=== PATIENT | female | born 1955 | race African-American/Black ===

== ENCOUNTER 2019-11-20 17:25 | Inpatient (IN) | payer MEDICARE, OTHER ==
[~2019-11-20] VITALS: Ht 185.4 cm; Wt 87.5 kg
[2019-11-20] MEDS ORDERED: ASPIRIN 81MG TABLET PO ONE (19:00)
[2019-11-20] MEDS ORDERED: NITROGLYCERIN 0.4MG TABLET SL SL PRN (19:00)
[2019-11-20 19:59] LABS: CHLORIDE 113 mEq/L (98-107)
[2019-11-20] MEDS ORDERED: LEVOFLOXACIN 750MG PREMIX 150 ML IV ONE (20:00)
[2019-11-20 20:03] LABS: BASOPHILS % 1.1 % (0.0-2.0); EOSINOPHILS % 1.9 % (0.0-5.0); HEMOGLOBIN. 15.9 g/dL (12.0-16.0); LYMPHOCYTES % 29.9 % (20.0-50.0); MEAN CORPUSCULAR HEMOGLOBIN 32.4 pg (28.0-32.0); MEAN CORPUSCULAR VOLUME 95.7 fL (81.0-99.0); MEAN PLATELET VOLUME 9.7 fl (7.4-10.4); MONOCYTES % 7.1 % (2.0-8.0); PLATELET 158 x1000/uL (130-400); RED BLOOD CELL COUNT 4.91 mill/uL (4.2-5.4); RED CELL DISTRIBUTION WIDTH 13.6 % (11.6-14.6)
[2019-11-20 20:05] LABS: D-DIMER 2.29 mg/L FEU (<0.50); INR 1.1; PROTHROMBIN TIME 11.8 sec (9.6-11.0)
[2019-11-20] MEDS ORDERED: ENOXAPARIN 150MG/ML SYR SUBCUT ONE (20:45)
[2019-11-20] MEDS ORDERED: HYDROCODONE/ACETAMINOPHEN 5/325MG TABLET PO PRN (21:15)
[2019-11-20] MEDS ORDERED: CLONIDINE 0.1MG TABLET PO PRN (21:15)
[2019-11-20] MEDS ORDERED: MAGNESIUM/ALUMINUM HYDROXIDE/SIMETHICONE 30ML UDC PO PRN (21:15)
[2019-11-20] MEDS ORDERED: ONDANSETRON HCL 4MG/2ML INJ IV PRN (21:15)
[2019-11-20] MEDS ORDERED: DOCUSATE SODIUM 100MG CAPSULE PO PRN (21:15)
[2019-11-20] MEDS ORDERED: AZITHROMYCIN 500 MG in DEXT 5% WATER 250 ML IV SCH (22:00)
[2019-11-20] MEDS ORDERED: CEFTRIAXONE 1 G PREMIX 50 ML IV SCH (22:00)
[2019-11-20 22:26] LABS: CLARITY URINE CLEAR (CLEAR); COLOR URINE YELLOW (YELLOW); KETONES URINE NEGATIVE (NEGATIVE); LEUKOCYTE ESTERASE URINE NEGATIVE (NEGATIVE); NITRITE URINE NEGATIVE (NEGATIVE); OCCULT BLOOD URINE NEGATIVE (NEGATIVE); PROTEIN URINE NEGATIVE (NEGATIVE); SPECIFIC GRAVITY URINE 1.017 (1.005-1.030); UROBILINOGEN URINE 0.2 E.U./dL (0.2-1.0)
[2019-11-20 23:57] LABS: CREATINE KINASE 190 IU/L (26-192)
[2019-11-21 01:55] LABS: BG BASE EXCESS 0.1 mmol/L (-2.0-2.0); BG CARBOXYHEMOGLOBIN 0.5 % (0.5-1.5); BG DEOXYHEMOGLOBIN 8.8 % (0.0-5.0); BG FRACTION INSPIRED OXYGEN 26; BG HCO3 ACT 24.3 mmol/L (22.0-26.0); BG METHEMOGLOBIN 0.4 % (0.0-1.5); BG OXYGEN SATURATION 91.1 % (92.0-98.5); BG OXYHEMOGLOBIN 90.3 % (94.0-97.0); BG PH 7.423 (7.350-7.450); BG SAMPLE SITE RIGHT RADIAL; BG TOTAL HEMOGLOBIN 15.1 g/dL (12.0-18.0); BG VENT MODE NASAL CANNULA
[2019-11-21] MEDS: ACETAMINOPHEN 325MG TABLET PO PRN (01:56)
[2019-11-21] MEDS ORDERED: IOHEXOL-350 100 ML BOTTLE ONE (03:33)
[2019-11-21 04:48] LABS: CHLORIDE 110 mEq/L (98-107)
[2019-11-21 04:57] LABS: HDL CHOLESTEROL 33 mg/dL (40-59); LDL CHOLESTEROL 125 mg/dL (5-100)
[2019-11-21 04:58] LABS: CREATINE KINASE 168 IU/L (26-192)
[2019-11-21 05:00] LABS: BASOPHILS % 1.2 % (0.0-2.0); EOSINOPHILS % 2.3 % (0.0-5.0); HEMATOCRIT. 42.6 % (36.0-48.0); HEMOGLOBIN. 14.5 g/dL (12.0-16.0); LYMPHOCYTES % 36.2 % (20.0-50.0); MEAN CORPUSCULAR HEMOGLOBIN 32.8 pg (28.0-32.0); MEAN CORPUSCULAR VOLUME 96.7 fL (81.0-99.0); MEAN PLATELET VOLUME 9.6 fl (7.4-10.4); MONOCYTES % 8.6 % (2.0-8.0); NEUTROPHILS % 51.7 % (40.0-76.0); PLATELET 148 x1000/uL (130-400); RED BLOOD CELL COUNT 4.41 mill/uL (4.2-5.4); RED CELL DISTRIBUTION WIDTH 13.1 % (11.6-14.6)
[2019-11-21] MEDS ORDERED: ENOXAPARIN 40MG/0.4ML SYR SUBCUT SCH (09:00)
[2019-11-21] MEDS ORDERED: ENOXAPARIN 120MG/0.8ML SYR SUBCUT NR (11:15)
[2019-11-21] MEDS: CEFTRIAXONE 1 G PREMIX 50 ML IV SCH (13:00)
[2019-11-21] MEDS: AZITHROMYCIN 500 MG in DEXT 5% WATER 250 ML IV SCH (14:00)
[2019-11-21] MEDS ORDERED: FUROSEMIDE 100MG/10ML VIAL IVP SCH (15:00)
[2019-11-21] MEDS: PREDNISONE 20MG TABLET PO SCH (15:15)
[2019-11-21 18:59] VITALS: BP 151/96
[2019-11-21 20:00] VITALS: BP 134/83
[2019-11-21] MEDS ORDERED: PRED-276 PO (20:39)
[2019-11-21] MEDS: ENOXAPARIN 150MG/ML SYR SUBCUT SCH (21:21)
[2019-11-21] MEDS: ALBUTEROL 6.7GM HFA INHALER ORI SCH (21:47)
[2019-11-22] VITALS: BP 133/86
[2019-11-22] MEDS: ALBUTEROL 6.7GM HFA INHALER ORI SCH ×4 (03:00→20:40)
[2019-11-22 04:00] VITALS: BP 129/80
[2019-11-22 08:00] VITALS: BP 132/87
[2019-11-22 08:17] LABS: EOSINOPHILS % 0.1 % (0.0-5.0); HEMATOCRIT. 44.4 % (36.0-48.0); LYMPHOCYTES % 21.5 % (20.0-50.0); MEAN CORPUSCULAR HEMOGLOBIN 32.8 pg (28.0-32.0); MEAN CORPUSCULAR VOLUME 96.8 fL (81.0-99.0); MEAN PLATELET VOLUME 9.2 fl (7.4-10.4); MONOCYTES % 5.9 % (2.0-8.0); NEUTROPHILS % 71.5 % (40.0-76.0); PLATELET 151 x1000/uL (130-400); RED BLOOD CELL COUNT 4.58 mill/uL (4.2-5.4); RED CELL DISTRIBUTION WIDTH 13.4 % (11.6-14.6)
[2019-11-22] MEDS: PREDNISONE 20MG TABLET PO SCH (08:46)
[2019-11-22] MEDS: ENOXAPARIN 150MG/ML SYR SUBCUT SCH (08:46)
[2019-11-22 09:21] LABS: CHLORIDE 108 mEq/L (98-107)
[2019-11-22 09:31] LABS: CREATINE KINASE MB FRACTION < 1.0 ng/mL (0.5-3.6)
[2019-11-22 09:33] LABS: CREATINE KINASE 108 IU/L (26-192)
[2019-11-22 09:34] LABS: LDL CHOLESTEROL 147 mg/dL (5-100)
[2019-11-22 09:35] LABS: HDL CHOLESTEROL 38 mg/dL (40-59)
[2019-11-22] MEDS: ACETAMINOPHEN 325MG TABLET PO PRN (10:28)
[2019-11-22] MEDS ORDERED: FUROSEMIDE 40MG/4ML VIAL IVP NR (11:15)
[2019-11-22 12:00] VITALS: BP 115/83
[2019-11-22] MEDS: AZITHROMYCIN 500 MG in DEXT 5% WATER 250 ML IV SCH (15:00)
[2019-11-22] MEDS: CEFTRIAXONE 1 G PREMIX 50 ML IV SCH (15:00)
[2019-11-22 16:00] VITALS: BP 126/86
[2019-11-22 20:00] VITALS: BP 134/82
[2019-11-22] MEDS: ENOXAPARIN 100MG/ML SYR SUBCUT SCH (21:43)
[2019-11-23] VITALS: BP 129/84
[2019-11-23] MEDS: ALBUTEROL 6.7GM HFA INHALER ORI SCH ×5 (02:00→21:20)
[2019-11-23 04:00] VITALS: BP 126/85
[2019-11-23 08:30] VITALS: BP 102/78
[2019-11-23] MEDS: PREDNISONE 20MG TABLET PO SCH (08:40)
[2019-11-23] MEDS: ENOXAPARIN 100MG/ML SYR SUBCUT SCH ×2 (08:41→20:40)
[2019-11-23 10:14] LABS: BASOPHILS % 0.8 % (0.0-2.0); HEMATOCRIT. 43.7 % (36.0-48.0); LYMPHOCYTES % 29.6 % (20.0-50.0); MEAN CORPUSCULAR VOLUME 96.5 fL (81.0-99.0); MEAN PLATELET VOLUME 9.5 fl (7.4-10.4); MONOCYTES % 7.1 % (2.0-8.0); NEUTROPHILS % 61.5 % (40.0-76.0); PLATELET 163 x1000/uL (130-400); RED BLOOD CELL COUNT 4.53 mill/uL (4.2-5.4); RED CELL DISTRIBUTION WIDTH 13.1 % (11.6-14.6)
[2019-11-23 10:25] LABS: CHLORIDE 108 mEq/L (98-107)
[2019-11-23] MEDS: CEFTRIAXONE 1 G PREMIX 50 ML IV SCH (11:29)
[2019-11-23 12:03] VITALS: BP 112/76
[2019-11-23] MEDS: AZITHROMYCIN 500 MG in DEXT 5% WATER 250 ML IV SCH (14:04)
[2019-11-23 16:19] VITALS: BP 108/80
[2019-11-23] MEDS ORDERED: POTASSIUM CHLORIDE 20MEQ TABLET SR PO NR (17:00)
[2019-11-23 20:00] VITALS: BP 104/64
[2019-11-23] MEDS ORDERED: ATORVASTATIN CALCIUM 20MG TABLET PO SCH (21:00)
[2019-11-24] VITALS: BP 124/84
[2019-11-24] MEDS: ALBUTEROL 6.7GM HFA INHALER ORI SCH ×4 (02:05→15:17)
[2019-11-24 04:00] VITALS: BP 121/81
[2019-11-24 06:36] LABS: BASOPHILS % 0.9 % (0.0-2.0); EOSINOPHILS % 0.8 % (0.0-5.0); MEAN CORPUSCULAR HEMOGLOBIN 32.9 pg (28.0-32.0); MEAN CORPUSCULAR VOLUME 96.3 fL (81.0-99.0); MEAN PLATELET VOLUME 9.4 fl (7.4-10.4); MONOCYTES % 7.5 % (2.0-8.0); NEUTROPHILS % 57.8 % (40.0-76.0); PLATELET 136 x1000/uL (130-400); RED BLOOD CELL COUNT 4.26 mill/uL (4.2-5.4)
[2019-11-24 07:07] LABS: CHLORIDE 109 mEq/L (98-107)
[2019-11-24 08:00] VITALS: BP 143/89
[2019-11-24] MEDS: PREDNISONE 20MG TABLET PO SCH (09:06)
[2019-11-24] MEDS: ENOXAPARIN 100MG/ML SYR SUBCUT SCH (09:07)
[2019-11-24 12:00] VITALS: BP 131/87
[2019-11-24] MEDS: CEFTRIAXONE 1 G PREMIX 50 ML IV SCH (14:01)
[2019-11-24] MEDS: AZITHROMYCIN 500 MG in DEXT 5% WATER 250 ML IV SCH (14:05)
[2019-11-24 16:00] VITALS: BP 129/85
[2019-11-24 20:00] VITALS: BP 111/77
[2019-11-24] MEDS: APIXABAN 5 MG TABLET PO SCH (20:08)
[2019-11-25] VITALS: BP 127/88
[2019-11-25 04:00] VITALS: BP 131/78
[2019-11-25 08:00] VITALS: BP 115/69
[2019-11-25] MEDS: PREDNISONE 20MG TABLET PO SCH (08:43)
[2019-11-25] MEDS: APIXABAN 5 MG TABLET PO SCH (08:43)
[2019-11-25] MEDS ORDERED: BENZONATATE 100MG CAPSULE PO PRN (11:00)
[2019-11-25 12:00] VITALS: BP 126/85
[2019-11-25 13:44] VITALS: BP 126/83
== END 2019-11-25 16:55 | disposition home or self-care (01) | DRG 193 ==
LOC: ER 17:25 → ENRESERV 11-21 17:09 → 7WST 11-21 18:49 → 5WST 11-25 04:17
PROVIDERS: ADMIT Hospitalist; ATTEND Hospitalist
DX: J18.9 Pneumonia, unspecified organism (principal); J96.21 Acute and chronic respiratory failure with hypoxia; J44.1 Chronic obstructive pulmonary disease with (acute) exacerbation; E44.1 Mild protein-calorie malnutrition; D68.59 Other primary thrombophilia; R04.2 Hemoptysis; I27.82 Chronic pulmonary embolism; J44.0 Chronic obstructive pulmonary disease with (acute) lower respiratory infection; N63.20 Unspecified lump in the left breast, unspecified quadrant; K76.89 Other specified diseases of liver; I27.21 Secondary pulmonary arterial hypertension; Z20.828 Contact with and (suspected) exposure to other viral communicable diseases; E78.5 Hyperlipidemia, unspecified; Z99.81 Dependence on supplemental oxygen; Z68.25 Body mass index [BMI] 25.0-25.9, adult; R74.0 Nonspecific elevation of levels of transaminase and lactic acid dehydrogenase [LDH]
CPT/HCPCS: 36415; 36600; 71045; 71275; 80048; 80053; 80061; 81003; 82375; 82550; 82553; 82805; 83605; 83735; 83880; 84443; 84484; 85025; 85379; 93005; 93306; 93970; 94640; 96365; 99285; J0456; J0696; J1650; J1940; J1956; J7060; J7512; Q9967; U0003-CS

== ENCOUNTER 2020-04-15 20:10 | Inpatient (IN) | payer MEDICARE, BC, OTHER ==
[~2020-04-15] VITALS: Ht 170.2 cm; Wt 83.9 kg
[2020-04-15 20:00] VITALS: BP 128/76
[~2020-04-15 20:10] MED LIST: PRED-276 PO; XAR15 MT
[2020-04-15 20:15] VITALS: BP 126/79
[2020-04-15 20:20] VITALS: BP 126/79
[2020-04-15] MEDS: SILDENAFIL CITRATE 20MG TABLET PO SCH (22:19)
[2020-04-15] MEDS: HYDROCODONE/ACETAMINOPHEN 5/325MG TABLET PO PRN (23:28)
[2020-04-16] MEDS: IPRATROPIUM/ALBUTEROL 0.5-3(2.5)MG/3ML NEB HHN SCH ×6 (00:39→21:15)
[2020-04-16 06:14] LABS: CHLORIDE 107 mEq/L (98-107)
[2020-04-16] MEDS: SILDENAFIL CITRATE 20MG TABLET PO SCH ×3 (06:19→21:50)
[2020-04-16 06:29] LABS: BASOPHILS % 0.6 % (0.0-2.0); EOSINOPHILS % 1.4 % (0.0-5.0); HEMATOCRIT. 41.5 % (36.0-48.0); HEMOGLOBIN. 13.7 g/dL (12.0-16.0); LYMPHOCYTES % 20.2 % (20.0-50.0); MEAN CORPUSCULAR HEMOGLOBIN 32.6 pg (28.0-32.0); MEAN CORPUSCULAR VOLUME 98.6 fL (81.0-99.0); MEAN PLATELET VOLUME 9.5 fl (7.4-10.4); MONOCYTES % 9.4 % (2.0-8.0); NEUTROPHILS % 68.4 % (40.0-76.0); PLATELET 144 x1000/uL (130-400); RED CELL DISTRIBUTION WIDTH 13.8 % (11.6-14.6)
[2020-04-16 07:53] VITALS: BP 120/73
[2020-04-16] MEDS: LIDOCAINE 5% PATCH TOP SCH ×2 (08:30→11:45)
[2020-04-16] MEDS: PREDNISONE 20MG TABLET PO SCH (08:31)
[2020-04-16] MEDS: HYDROCODONE/ACETAMINOPHEN 5/325MG TABLET PO PRN ×2 (08:32→16:40)
[2020-04-16] MEDS: AMLODIPINE 2.5MG TABLET PO SCH ×2 (08:32→21:00)
[2020-04-16] MEDS: POTASSIUM CHLORIDE 10MEQ TABLET SR PO SCH (08:38)
[2020-04-16] MEDS: FUROSEMIDE 20MG/2ML VIAL IVP SCH (09:00)
[2020-04-16] MEDS ORDERED: CEFTRIAXONE 1,000 MG in DEXTROSE 5% WATER 50 ML IV SCH (09:00)
[2020-04-16] MEDS: LOSARTAN POTASSIUM 25 MG TABLET PO SCH (09:00)
[2020-04-16] MEDS ORDERED: AZITHROMYCIN 250 MG TABLET PO SCH (09:00)
[2020-04-16 10:34] VITALS: BP 109/78
[2020-04-16] MEDS ORDERED: P20 MT (13:44)
[2020-04-16] MEDS ORDERED: FLUT1BLS INH (13:44)
[2020-04-16] MEDS ORDERED: POTA-79 PO (13:44)
[2020-04-16] MEDS ORDERED: FURO-151 PO (13:44)
[2020-04-16] MEDS ORDERED: SUCR1TAB MT (13:44)
[2020-04-16] MEDS ORDERED: ALBU4TAB6 MT (13:44)
[2020-04-16] MEDS: FAMOTIDINE 20MG/2ML VIAL IV SCH (16:19)
[2020-04-16] MEDS: RIVAROXABAN 15 MG TABLET PO SCH (16:19)
[2020-04-16] MEDS: GUAIFENESIN-DM 200MG-20MG/10ML UDC PO PRN (16:23)
[2020-04-16 20:00] VITALS: BP 105/71
[2020-04-16] MEDS: GUAIFENESIN 600MG ER TABLET PO SCH (21:49)
[2020-04-17] MEDS: IPRATROPIUM/ALBUTEROL 0.5-3(2.5)MG/3ML NEB HHN SCH ×6 (00:25→21:23)
[2020-04-17 06:48] LABS: BASOPHILS % 0.7 % (0.0-2.0); EOSINOPHILS % 0.4 % (0.0-5.0); HEMATOCRIT. 43.6 % (36.0-48.0); HEMOGLOBIN. 14.7 g/dL (12.0-16.0); LYMPHOCYTES % 14.5 % (20.0-50.0); MEAN CORPUSCULAR HEMOGLOBIN 33.1 pg (28.0-32.0); MEAN CORPUSCULAR VOLUME 98.4 fL (81.0-99.0); MEAN PLATELET VOLUME 9.5 fl (7.4-10.4); MONOCYTES % 7.3 % (2.0-8.0); NEUTROPHILS % 77.1 % (40.0-76.0); PLATELET 165 x1000/uL (130-400); RED BLOOD CELL COUNT 4.43 mill/uL (4.2-5.4); RED CELL DISTRIBUTION WIDTH 13.9 % (11.6-14.6)
[2020-04-17] MEDS: SILDENAFIL CITRATE 20MG TABLET PO SCH ×3 (06:49→21:32)
[2020-04-17 07:13] LABS: CHLORIDE 106 mEq/L (98-107)
[2020-04-17 07:18] LABS: PHOSPHORUS 3.6 mg/dL (2.5-4.9)
[2020-04-17 07:19] LABS: LDL CHOLESTEROL 130 mg/dL (5-100)
[2020-04-17 07:21] LABS: HDL CHOLESTEROL 61 mg/dL (40-59)
[2020-04-17 07:35] LABS: FOLIC ACID (FOLATE) SERUM 13.2 ng/mL (>5.38)
[2020-04-17 08:00] VITALS: BP 114/73
[2020-04-17] MEDS: FUROSEMIDE 20MG/2ML VIAL IVP SCH (09:00)
[2020-04-17] MEDS: AMLODIPINE 2.5MG TABLET PO SCH ×2 (09:00→20:09)
[2020-04-17] MEDS: PREDNISONE 20MG TABLET PO SCH (09:07)
[2020-04-17] MEDS: FAMOTIDINE 20MG/2ML VIAL IV SCH (09:07)
[2020-04-17] MEDS: HYDROCODONE/ACETAMINOPHEN 5/325MG TABLET PO PRN ×4 (09:08→21:31)
[2020-04-17] MEDS: POTASSIUM CHLORIDE 10MEQ TABLET SR PO SCH (09:08)
[2020-04-17] MEDS: LIDOCAINE 5% PATCH TOP SCH ×2 (09:08→09:09)
[2020-04-17] MEDS: LOSARTAN POTASSIUM 25 MG TABLET PO SCH (09:08)
[2020-04-17] MEDS: GUAIFENESIN 600MG ER TABLET PO SCH ×2 (09:08→20:09)
[2020-04-17] MEDS: CYANOCOBALAMIN 1000MCG/ML VIAL IM SCH (12:58)
[2020-04-17] MEDS: RIVAROXABAN 15 MG TABLET PO SCH (17:00)
[2020-04-17 20:00] VITALS: BP 132/52
[2020-04-17] MEDS: THROAT LOZENGES-BENZOCAINE/MENTH/CETYLPYRD CL LOZENGES MM PRN (20:11)
[2020-04-18] MEDS: IPRATROPIUM/ALBUTEROL 0.5-3(2.5)MG/3ML NEB HHN SCH ×6 (00:59→22:05)
[2020-04-18] MEDS: SILDENAFIL CITRATE 20MG TABLET PO SCH ×2 (05:03→17:45)
[2020-04-18] MEDS: HYDROCODONE/ACETAMINOPHEN 5/325MG TABLET PO PRN ×2 (05:04→13:47)
[2020-04-18 07:18] VITALS: BP 105/69
[2020-04-18] MEDS: GUAIFENESIN 600MG ER TABLET PO SCH (08:14)
[2020-04-18] MEDS: AMLODIPINE 2.5MG TABLET PO SCH ×2 (08:15→22:20)
[2020-04-18] MEDS: LOSARTAN POTASSIUM 25 MG TABLET PO SCH (08:16)
[2020-04-18] MEDS: POTASSIUM CHLORIDE 10MEQ TABLET SR PO SCH (08:16)
[2020-04-18] MEDS: PREDNISONE 20MG TABLET PO SCH (08:16)
[2020-04-18] MEDS: LIDOCAINE 5% PATCH TOP SCH ×2 (08:18)
[2020-04-18] MEDS: FAMOTIDINE 20MG/2ML VIAL IV SCH (08:19)
[2020-04-18] MEDS: FUROSEMIDE 20MG/2ML VIAL IVP SCH (08:19)
[2020-04-18] MEDS: CYANOCOBALAMIN 1000MCG/ML VIAL IM SCH (08:20)
[2020-04-18] MEDS: THROAT LOZENGES-BENZOCAINE/MENTH/CETYLPYRD CL LOZENGES MM PRN ×2 (10:05→15:48)
[2020-04-18] MEDS: RIVAROXABAN 15 MG TABLET PO SCH (17:27)
[2020-04-18] MEDS: GUAIFENESIN/CODEINE 200-20MG/10ML UDC PO PRN (17:29)
[2020-04-18 20:00] VITALS: BP 133/85
[2020-04-19] MEDS: IPRATROPIUM/ALBUTEROL 0.5-3(2.5)MG/3ML NEB HHN SCH ×6 (01:22→21:07)
[2020-04-19] MEDS: SILDENAFIL CITRATE 20MG TABLET PO SCH ×4 (01:31→21:37)
[2020-04-19] MEDS: GUAIFENESIN-DM 200MG-20MG/10ML UDC PO PRN ×2 (03:53→09:56)
[2020-04-19] MEDS: THROAT LOZENGES-BENZOCAINE/MENTH/CETYLPYRD CL LOZENGES MM PRN ×2 (06:03→21:41)
[2020-04-19] MEDS: HYDROCODONE/ACETAMINOPHEN 5/325MG TABLET PO PRN ×2 (06:04→15:39)
[2020-04-19 06:54] LABS: BASOPHILS % 0.4 % (0.0-2.0); EOSINOPHILS % 0.3 % (0.0-5.0); HEMATOCRIT. 39.1 % (36.0-48.0); LYMPHOCYTES % 15.6 % (20.0-50.0); MEAN CORPUSCULAR HEMOGLOBIN 32.9 pg (28.0-32.0); MEAN CORPUSCULAR VOLUME 98.6 fL (81.0-99.0); MEAN PLATELET VOLUME 9.6 fl (7.4-10.4); MONOCYTES % 12.3 % (2.0-8.0); NEUTROPHILS % 71.4 % (40.0-76.0); PLATELET 131 x1000/uL (130-400); RED BLOOD CELL COUNT 3.96 mill/uL (4.2-5.4); RED CELL DISTRIBUTION WIDTH 13.7 % (11.6-14.6)
[2020-04-19 07:06] LABS: CHLORIDE 107 mEq/L (98-107)
[2020-04-19 08:00] VITALS: BP 129/74
[2020-04-19] MEDS: CYANOCOBALAMIN 1000MCG/ML VIAL IM SCH (08:39)
[2020-04-19] MEDS: FUROSEMIDE 20MG/2ML VIAL IVP SCH (08:39)
[2020-04-19] MEDS: FAMOTIDINE 20MG/2ML VIAL IV SCH (08:39)
[2020-04-19] MEDS: PREDNISONE 20MG TABLET PO SCH (08:40)
[2020-04-19] MEDS: AMLODIPINE 2.5MG TABLET PO SCH ×2 (08:40→21:37)
[2020-04-19] MEDS: POTASSIUM CHLORIDE 10MEQ TABLET SR PO SCH (08:40)
[2020-04-19] MEDS: LOSARTAN POTASSIUM 25 MG TABLET PO SCH (08:41)
[2020-04-19] MEDS: LIDOCAINE 5% PATCH TOP SCH ×2 (08:41→08:42)
[2020-04-19] MEDS: GUAIFENESIN/CODEINE 200-20MG/10ML UDC PO PRN (15:38)
[2020-04-19] MEDS: RIVAROXABAN 15 MG TABLET PO SCH (16:47)
[2020-04-19 20:00] VITALS: BP 114/78
[2020-04-20] MEDS: IPRATROPIUM/ALBUTEROL 0.5-3(2.5)MG/3ML NEB HHN SCH ×6 (01:00→22:16)
[2020-04-20] MEDS: THROAT LOZENGES-BENZOCAINE/MENTH/CETYLPYRD CL LOZENGES MM PRN ×2 (04:25→11:14)
[2020-04-20] MEDS: SILDENAFIL CITRATE 20MG TABLET PO SCH ×3 (05:09→22:52)
[2020-04-20] MEDS: HYDROCODONE/ACETAMINOPHEN 5/325MG TABLET PO PRN ×2 (05:10→15:20)
[2020-04-20] MEDS: POTASSIUM CHLORIDE 10MEQ TABLET SR PO SCH (08:35)
[2020-04-20] MEDS: PREDNISONE 20MG TABLET PO SCH (08:35)
[2020-04-20] MEDS: FAMOTIDINE 20MG/2ML VIAL IV SCH (08:35)
[2020-04-20] MEDS: GUAIFENESIN-DM 200MG-20MG/10ML UDC PO PRN ×2 (08:35→15:16)
[2020-04-20] MEDS: FUROSEMIDE 20MG/2ML VIAL IVP SCH (08:35)
[2020-04-20] MEDS: LOSARTAN POTASSIUM 25 MG TABLET PO SCH (08:35)
[2020-04-20] MEDS: LIDOCAINE 5% PATCH TOP SCH ×2 (08:36)
[2020-04-20] MEDS: AMLODIPINE 2.5MG TABLET PO SCH ×2 (09:00→21:00)
[2020-04-20 10:34] VITALS: BP 121/88
[2020-04-20] MEDS: RIVAROXABAN 15 MG TABLET PO SCH (17:18)
[2020-04-20 20:00] VITALS: BP 102/76
[2020-04-20] MEDS: GUAIFENESIN/CODEINE 200-20MG/10ML UDC PO PRN (22:52)
[2020-04-21] MEDS: IPRATROPIUM/ALBUTEROL 0.5-3(2.5)MG/3ML NEB HHN SCH ×6 (02:14→22:06)
[2020-04-21] MEDS ORDERED: HYDROCODONE/ACETAMINOPHEN 5/325MG TABLET PO PRN (05:15)
[2020-04-21] MEDS: SILDENAFIL CITRATE 20MG TABLET PO SCH ×3 (05:32→21:18)
[2020-04-21 08:00] VITALS: BP 126/96
[2020-04-21] MEDS: FAMOTIDINE 20MG/2ML VIAL IV SCH (08:35)
[2020-04-21] MEDS: GUAIFENESIN/CODEINE 200-20MG/10ML UDC PO PRN ×2 (08:35→21:19)
[2020-04-21] MEDS: PREDNISONE 20MG TABLET PO SCH (08:35)
[2020-04-21] MEDS: FUROSEMIDE 20MG/2ML VIAL IVP SCH (08:35)
[2020-04-21] MEDS: POTASSIUM CHLORIDE 10MEQ TABLET SR PO SCH (08:35)
[2020-04-21] MEDS: LOSARTAN POTASSIUM 25 MG TABLET PO SCH (08:36)
[2020-04-21] MEDS: AMLODIPINE 2.5MG TABLET PO SCH ×2 (08:36→21:00)
[2020-04-21] MEDS: LIDOCAINE 5% PATCH TOP SCH ×2 (08:37)
[2020-04-21] MEDS ORDERED: CYANOCOBALAMIN 1000MCG/ML VIAL IM SCH ×2 (09:00)
[2020-04-21] MEDS: GUAIFENESIN-DM 200MG-20MG/10ML UDC PO PRN (10:21)
[2020-04-21] MEDS: RIVAROXABAN 15 MG TABLET PO SCH (16:08)
[2020-04-21 20:00] VITALS: BP 94/66
[2020-04-22] MEDS: IPRATROPIUM/ALBUTEROL 0.5-3(2.5)MG/3ML NEB HHN SCH ×6 (01:37→21:19)
[2020-04-22] MEDS: SILDENAFIL CITRATE 20MG TABLET PO SCH ×3 (06:15→21:42)
[2020-04-22] MEDS: HYDROCODONE/ACETAMINOPHEN 5/325MG TABLET PO PRN ×2 (06:16→21:48)
[2020-04-22 08:15] VITALS: BP 119/83
[2020-04-22] MEDS: FUROSEMIDE 20MG/2ML VIAL IVP SCH (08:41)
[2020-04-22] MEDS: LOSARTAN POTASSIUM 25 MG TABLET PO SCH (08:41)
[2020-04-22] MEDS: PREDNISONE 20MG TABLET PO SCH (08:41)
[2020-04-22] MEDS: FAMOTIDINE 20MG/2ML VIAL IV SCH (08:41)
[2020-04-22] MEDS: AMLODIPINE 2.5MG TABLET PO SCH ×2 (08:41→21:42)
[2020-04-22] MEDS: POTASSIUM CHLORIDE 10MEQ TABLET SR PO SCH (08:41)
[2020-04-22] MEDS: LIDOCAINE 5% PATCH TOP SCH ×2 (08:43)
[2020-04-22] MEDS ORDERED: ACETAMINOPHEN 325MG TABLET PO PRN (10:45)
[2020-04-22] MEDS ORDERED: ERGOCALCIFEROL 50000UNITS CAPSULE PO SCH (11:00)
[2020-04-22 13:20] VITALS: BP 129/64
[2020-04-22] MEDS: GUAIFENESIN/CODEINE 200-20MG/10ML UDC PO PRN (15:30)
[2020-04-22 20:00] VITALS: BP 118/73
[2020-04-22] MEDS: GUAIFENESIN-DM 200MG-20MG/10ML UDC PO PRN (22:00)
[2020-04-23] MEDS: IPRATROPIUM/ALBUTEROL 0.5-3(2.5)MG/3ML NEB HHN SCH ×6 (00:48→20:08)
[2020-04-23] MEDS: SILDENAFIL CITRATE 20MG TABLET PO SCH ×3 (06:00→21:54)
[2020-04-23] MEDS: GUAIFENESIN-DM 200MG-20MG/10ML UDC PO PRN (06:31)
[2020-04-23 07:05] LABS: HEMATOCRIT. 43.9 % (36.0-48.0); HEMOGLOBIN. 14.5 g/dL (12.0-16.0); MEAN CORPUSCULAR HEMOGLOBIN 32.8 pg (28.0-32.0); MEAN CORPUSCULAR VOLUME 99.4 fL (81.0-99.0); MEAN PLATELET VOLUME 9.3 fl (7.4-10.4); PLATELET 103 x1000/uL (130-400); RED BLOOD CELL COUNT 4.41 mill/uL (4.2-5.4); RED CELL DISTRIBUTION WIDTH 13.5 % (11.6-14.6)
[2020-04-23 08:13] VITALS: BP 113/80
[2020-04-23] MEDS ORDERED: GUAIFENESIN 200MG/10ML SUGAR FREE UDC PO NR (09:45)
[2020-04-23] MEDS: FUROSEMIDE 20MG/2ML VIAL IVP SCH (09:54)
[2020-04-23] MEDS: FAMOTIDINE 20MG/2ML VIAL IV SCH (09:54)
[2020-04-23] MEDS: LOSARTAN POTASSIUM 25 MG TABLET PO SCH (09:55)
[2020-04-23] MEDS: AMLODIPINE 2.5MG TABLET PO SCH ×2 (09:55→21:00)
[2020-04-23] MEDS: LIDOCAINE 5% PATCH TOP SCH ×2 (09:55→09:56)
[2020-04-23] MEDS: PREDNISONE 20MG TABLET PO SCH (09:55)
[2020-04-23] MEDS: POTASSIUM CHLORIDE 10MEQ TABLET SR PO SCH (09:55)
[2020-04-23 14:23] LABS: PLATELET ESTIMATE DECREASED
[2020-04-23] MEDS ORDERED: LORAZEPAM 1MG TABLET PO NR (14:30)
[2020-04-23] MEDS: GUAIFENESIN 200MG/10ML SUGAR FREE UDC PO PRN (14:38)
[2020-04-23] MEDS ORDERED: RIVAROXABAN 15 MG TABLET PO SCH (17:00)
[2020-04-23] MEDS: RIVAROXABAN 15 MG TABLET PO SCH (17:07)
[2020-04-23] MEDS: HYDROCODONE/ACETAMINOPHEN 5/325MG TABLET PO PRN (20:27)
[2020-04-23 23:00] VITALS: BP 100/60
[2020-04-24] MEDS: IPRATROPIUM/ALBUTEROL 0.5-3(2.5)MG/3ML NEB HHN SCH ×5 (03:45→21:09)
[2020-04-24] MEDS: SILDENAFIL CITRATE 20MG TABLET PO SCH ×3 (05:41→21:34)
[2020-04-24 08:03] VITALS: BP 115/76
[2020-04-24] MEDS: GUAIFENESIN-DM 200MG-20MG/10ML UDC PO PRN (08:45)
[2020-04-24] MEDS: FAMOTIDINE 20MG/2ML VIAL IV SCH (08:45)
[2020-04-24] MEDS: POTASSIUM CHLORIDE 10MEQ TABLET SR PO SCH (08:46)
[2020-04-24] MEDS: PREDNISONE 20MG TABLET PO SCH (08:46)
[2020-04-24] MEDS: LOSARTAN POTASSIUM 25 MG TABLET PO SCH (08:46)
[2020-04-24] MEDS: FUROSEMIDE 20MG/2ML VIAL IVP SCH (08:47)
[2020-04-24] MEDS: LIDOCAINE 5% PATCH TOP SCH ×2 (08:47)
[2020-04-24] MEDS ORDERED: LORAZEPAM 0.5MG TABLET PO PRN ×2 (12:00→18:00)
[2020-04-24] MEDS: RIVAROXABAN 15 MG TABLET PO SCH (17:09)
[2020-04-24] MEDS ORDERED: IPRATROPIUM/ALBUTEROL 0.5-3(2.5)MG/3ML NEB HHN NR (18:29)
[2020-04-24 20:00] VITALS: BP 141/89
[2020-04-24] MEDS: GUAIFENESIN 200MG/10ML SUGAR FREE UDC PO PRN (23:57)
[2020-04-25 00:32] LABS: BG BASE EXCESS 4.6 mmol/L (-2.0-2.0); BG CARBOXYHEMOGLOBIN 0.9 % (0.5-1.5); BG DEOXYHEMOGLOBIN 32.1 % (0.0-5.0); BG FRACTION INSPIRED OXYGEN 36; BG HCO3 ACT 28.6 mmol/L (22.0-26.0); BG METHEMOGLOBIN 0.2 % (0.0-1.5); BG OXYGEN SATURATION 67.5 % (92.0-98.5); BG OXYHEMOGLOBIN 66.8 % (94.0-97.0); BG PCO2 40.3 mmHg (35.0-45.0); BG PH 7.469 (7.350-7.450); BG PO2 33.6 mmHg (75.0-100.0); BG SAMPLE SITE RIGHT RADIAL; BG VENT MODE NASAL CANNULA
[2020-04-25] MEDS: IPRATROPIUM/ALBUTEROL 0.5-3(2.5)MG/3ML NEB HHN SCH ×3 (01:46→07:52)
[2020-04-25] MEDS: SILDENAFIL CITRATE 20MG TABLET PO SCH (05:25)
[2020-04-25 05:26] VITALS: BP 130/92
[2020-04-25 07:38] LABS: BASOPHILS % 0.2 % (0.0-2.0); EOSINOPHILS % 0.2 % (0.0-5.0); LYMPHOCYTES % 27.8 % (20.0-50.0); MEAN CORPUSCULAR HEMOGLOBIN 32.2 pg (28.0-32.0); MEAN CORPUSCULAR VOLUME 98.7 fL (81.0-99.0); MEAN PLATELET VOLUME 9.7 fl (7.4-10.4); MONOCYTES % 9.7 % (2.0-8.0); NEUTROPHILS % 62.1 % (40.0-76.0); PLATELET 103 x1000/uL (130-400); RED BLOOD CELL COUNT 4.36 mill/uL (4.2-5.4); RED CELL DISTRIBUTION WIDTH 13.4 % (11.6-14.6)
[2020-04-25 07:50] VITALS: BP 126/79
[2020-04-25 08:12] LABS: BG BASE EXCESS 5.3 mmol/L (-2.0-2.0); BG FRACTION INSPIRED OXYGEN 28; BG HCO3 ACT 27.7 mmol/L (22.0-26.0); BG METHEMOGLOBIN 0.1 % (0.0-1.5); BG OXYGEN SATURATION 58.5 % (92.0-98.5); BG OXYHEMOGLOBIN 57.9 % (94.0-97.0); BG PCO2 34.1 mmHg (35.0-45.0); BG PH 7.528 (7.350-7.450); BG PO2 < 30.3 mmHg (75.0-100.0); BG SAMPLE SITE RIGHT RADIAL; BG TOTAL HEMOGLOBIN 15.4 g/dL (12.0-18.0); BG VENT MODE NASAL CANNULA
[2020-04-25] MEDS ORDERED: AMLODIPINE 2.5MG TABLET PO SCH (09:00)
[2020-04-25 09:44] VITALS: BP 126/79
[2020-04-25] MEDS ORDERED: AZITHROMYCIN 500 MG in DEXT 5% WATER 250 ML IV SCH (10:00)
[2020-04-25] MEDS ORDERED: CEFTRIAXONE 1,000 MG in DEXTROSE 5% WATER 50 ML IV SCH (10:00)
[2020-04-25] MEDS: PREDNISONE 20MG TABLET PO SCH (10:23)
[2020-04-25] MEDS: FUROSEMIDE 20MG/2ML VIAL IVP SCH (10:24)
[2020-04-25] MEDS: LOSARTAN POTASSIUM 25 MG TABLET PO SCH (10:24)
[2020-04-25] MEDS: FAMOTIDINE 20MG/2ML VIAL IV SCH (10:24)
[2020-04-25] MEDS: POTASSIUM CHLORIDE 10MEQ TABLET SR PO SCH (10:24)
[2020-04-25] MEDS: LIDOCAINE 5% PATCH TOP SCH ×2 (10:38→10:39)
[2020-04-25 13:36] VITALS: BP 139/99
[2020-04-25] MEDS ORDERED: ALBU6.7H9 INH (14:01)
[2020-04-25] MEDS ORDERED: RIVA10TA MT (14:01)
[2020-04-25] MEDS ORDERED: FURO-152 MT (14:01)
== END 2020-04-25 12:18 | disposition short-term general hospital (02) | DRG 947 ==
PROVIDERS: ADMIT Physical Medicine & Rehabilitation Spinal Cord Injury Medicine; ATTEND Specialist
DX: R53.81 Other malaise (principal); U07.1 COVID-19; E46 Unspecified protein-calorie malnutrition; I50.32 Chronic diastolic (congestive) heart failure; I27.82 Chronic pulmonary embolism; J96.10 Chronic respiratory failure, unspecified whether with hypoxia or hypercapnia; J84.112 Idiopathic pulmonary fibrosis; S90.31XA Contusion of right foot, initial encounter; M17.0 Bilateral primary osteoarthritis of knee; I25.10 Atherosclerotic heart disease of native coronary artery without angina pectoris; I11.0 Hypertensive heart disease with heart failure; G89.29 Other chronic pain; I27.21 Secondary pulmonary arterial hypertension; I73.9 Peripheral vascular disease, unspecified; Z99.81 Dependence on supplemental oxygen; Z79.01 Long term (current) use of anticoagulants; J43.9 Emphysema, unspecified; I27.81 Cor pulmonale (chronic)
CPT/HCPCS: 36415; 36600; 71045; 73560; 73630; 80048; 80053; 80061; 82306; 82375; 82607; 82746; 82805; 83735; 84100; 84134; 84443; 85025; 87070; 87426; 92610; 93005; 93970; 97110; 97112; 97116; 97140; 97162; 97166; 97530; 97535; C1893; J0456; J0696; J1940; J3420; J3490; J7060; J7512